=== PATIENT | female | born 1990 | race Two or more races ===

== ENCOUNTER 2022-03-10 09:34 | Emergency (ER) | payer MEDICAID ==
[2022-03-10] MEDS ORDERED: Ketorolac 30 MG/ML SDV IM ONE (09:45)
[2022-03-10 10:13] LABS: ESTIMATED GFR 100 mL/min (>60)
[2022-03-10] MEDS ORDERED: Ondansetron 4 MG Tab.DIS PO STA (10:23)
== END 2022-03-10 11:08 | disposition home or self-care (01) ==
LOC: FB.ED 09:34
DX: N39.0 Urinary tract infection, site not specified (principal)
CPT/HCPCS: 36415; 80048; 81001; 85025; 96372; 99283; J1885; Q0162

== ENCOUNTER 2022-09-27 13:23 | Emergency (ER) | payer MEDICAID ==
[2022-09-27] MEDS ORDERED: Ondansetron 4 MG/2 ML SDV IVPUSH ONE (15:14)
[2022-09-27] MEDS ORDERED: Sodium Chloride 0.9% 10 ML Syringe FLUSH PRN (15:14)
[2022-09-27] MEDS ORDERED: HYDROmorphone 2 MG/ML SDV IVPUSH ONE (15:14)
[2022-09-27] MEDS ORDERED: Sodium Chloride 0.9% 500 ML IV ONE (15:14)
[2022-09-27 15:57] LABS: ESTIMATED GFR 100 mL/min (>60)
[2022-09-27] MEDS ORDERED: Iopamidol 755 Mg/ML 75 ML Bottle IV ONE (17:41)
[2022-09-27] MEDS ORDERED: Sodium Chloride 0.9% 10 ML Syringe FLUSH ONE (17:41)
== END 2022-09-27 19:20 | disposition left against medical advice (07) ==
LOC: FB.ED 13:23
DX: S22.078A Other fracture of T9-T10 vertebra, initial encounter for closed fracture (principal); M62.830 Muscle spasm of back; Z72.0 Tobacco use; W10.8XXA Fall (on) (from) other stairs and steps, initial encounter
CPT/HCPCS: 36415; 71045; 71260; 72128; 72131; 74177; 80053; 81001; 81025; 83690; 83735; 85025; 96374; 96375; 99283; 99285-25; J1170; J2405; J3490; J7040; Q9967